=== PATIENT | male | born 1950 | race Caucasian/White ===

== ENCOUNTER 2017-08-16 07:37 | Outpatient (CLI) | payer MEDICARE, BC ==
[2017-08-16] MEDS ORDERED: Gadobenate Dimeglumine 529 MG/1 ML (20ML VIAL) ONE (09:00)
--- NOTE | 2017-08-16 13:02 | MRI ---
PRE AND POSTCONTRAST ENHANCED MRI IMAGES BRAIN: HISTORY: Malignant neoplasm of skin, melanoma; C43.9, C79.9. FINDINGS: Pre- and postcontrast-enhanced MRI images of brain obtained. Comparison is made to previous exam fro m 08/15/16. Pre- and postcontrast-enhanced MRI images of the brain demonstrate an area of T2 signal abnormality i n the right posterior frontal lobe. This is unchanged since the previous comparison exam. No abnorm al areas of enhancement are seen in this region or in the rest of the brain. No other T2 signal abno rmality is seen. IMPRESSION: Stable MRI appearance of the brain. No definite evidence of tumor recurrence or masses or lesions se en. A small area of T2 signal abnormality, which is stable, is again seen. No evidence of acute int racranial metastatic lesion seen. 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 POS: [facility]
--- NOTE | 2017-08-16 14:18 | CT ---
CHEST AND ABDOMEN AND PELVIC CT SCAN WITH IV CONTRAST: HISTORY: A 67-year-old male with a history of metastatic melanoma. The patient also has a history of a prior brain Schwannoma. COMPARISON: 08/15/16. FINDINGS: Small stable right minor fissure internal pulmonary lymph node, a normal finding. 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 No mediastinal mass or adenopathy. No pleural effusion or pericard ial effusion. Mild stable linear scarring in the right base. The liver, gallbladder, pancreas, spleen, adrenal glands, and kidneys are unremarkable. No renal hazel culi or acute obstruction. No evidence for bowel obstruction, abscess, adenopathy, or abnormal fl uid collection within the abdomen and pelvis. IMPRESSION: Unremarkable and stable chest, abdomen, and pelvic CT scan. No evidence of metastasis. Stable from 08/15/16. POS: [facility]
== END 2017-08-16 07:38 | disposition home or self-care (01) ==
LOC: SCSCT 07:37
PROVIDERS: ATTEND Internal Medicine Hematology & Oncology
DX: C79.31 Secondary malignant neoplasm of brain (principal); C43.9 Malignant melanoma of skin, unspecified
CPT/HCPCS: 70553; 71260; 74177; A9579

== ENCOUNTER 2017-10-24 13:53 | Emergency (ER) | payer MEDICARE, BC ==
--- NOTE | 2017-10-24 15:14 | RAD ---
AP PELVIS: History: Right hip pain, right thigh pain. FINDINGS/IMPRESSION: No fracture, dislocation, or bony destruction is identified. POS: [facility]
--- NOTE | 2017-10-24 15:50 | ULT ---
VENOUS DOPPLER ULTRASOUND OF THE RIGHT LOWER EXTREMITY: Date: 10/24/17 HISTORY: Right lower extremity pain. Right thigh and right hip pain. TECHNIQUE: Swift scale ultrasound with color flow and spectral Doppler imaging of the deep venous system of the r ight lower extremity is performed. FINDINGS: There is good flow, compression, and augmentation noted in the right common femoral, femoral, deep fe moral, popliteal, posterior tibial, and greater saphenous veins. IMPRESSION: No evidence of deep venous thrombosis in the right lower extremity. POS: [facility]
== END 2017-10-24 16:10 | disposition home or self-care (01) ==
LOC: SCSER 13:53
DX: S76.911A Strain of unspecified muscles, fascia and tendons at thigh level, right thigh, initial encounter (principal); I10 Essential (primary) hypertension; F43.10 Post-traumatic stress disorder, unspecified; Z87.891 Personal history of nicotine dependence; X50.9XXA Other and unspecified overexertion or strenuous movements or postures, initial encounter
CPT/HCPCS: 72170

== ENCOUNTER 2019-02-06 08:15 | Outpatient (CLI) | payer MEDICARE, BC ==
[2019-02-06] MEDS ORDERED: Iopamidol 370 76% 100 ML VIAL ONE (09:00)
--- NOTE | 2019-02-06 09:01 | CT ---
CT OF THE CHEST, ABDOMEN AND PELVIS WITH IV CONTRAST INDICATION: History of melanoma COMPARISON: CT of the chest, abdomen and pelvis with contrast dated August 16, 2017 FINDINGS: CHEST: Lungs:There is stable paraseptal emphysema involving the upper lobes. No suspicious pulmonary nodule or pleural effusion is demonstrated. Heart and great vessels:There are mild vascular calcifications involving the coronary arteries and th oracic aorta. No pathologically enlarged lymph nodes are evident. Pleural space: No pneumothorax or effusion. Additional findings: ABDOMEN: Liver:Normal appearing. Spleen:Normal appearing. Pancreas:Normal appearing. Adrenal Glands:Normal appearing. Kidneys:Normal appearing. Aorta:There are mild to moderate vascular calcifications involving the abdominal aorta. Additional findings: No free fluid or free air. Pelvis: Bowel:There is a mild amount of retained stool within the colon. The appendix is not definitely demon strated. The small bowel is of normal caliber. Bladder:Normal appearing. Reproductive structures:The prostate measures 5.6 cm Rectum and perirectal soft tissues:Normal appearing. Additional findings: No free fluid or free air. Osseous structures: No acute osseous abnormality. There is scattered degenerative and osteoarthritic changes. IMPRESSION: 1. No CT evidence of metastatic disease involving the chest, abdomen and pelvis.
== END 2019-02-06 08:16 | disposition home or self-care (01) ==
LOC: SCSCT 08:15
PROVIDERS: ATTEND Internal Medicine Hematology & Oncology
DX: C43.4 Malignant melanoma of scalp and neck (principal)
CPT/HCPCS: 71260; 74177; Q9967

== ENCOUNTER 2019-02-07 12:26 | Outpatient (CLI) | payer MEDICARE, BC ==
[~2019-02-07 12:26] MED LIST: Gadobenate Dimeglumine 529 MG/1 ML (20ML VIAL) ONE
--- NOTE | 2019-02-07 14:50 | MRI ---
BRAIN MRI: 02/07/19 CLINICAL HISTORY: Malignant melanoma scalp and neck. FINDINGS: Reference is made to 08/16/17 MRI brain exam. Stable FLAIR and T2 hyperintense signal abnormality of the right parietal lobe involving cortex and s ubcortical white matter. There is no pathologic intra-axial enhancement. Areas of overlying suscepti bility from calvarial and scalp related artifact from prior surgery are present. There is mild globa l atrophy with compensatory dilatation of ventricular system. No acute territorial infarction. Incid ental note of a stable left vestibular Schwannoma. IMPRESSION: Stable brain MRI. No interval acute intracranial abnormalities demonstrated. POS: [facility]
== END 2019-02-07 12:27 | disposition home or self-care (01) ==
LOC: SCSMRI 12:26
PROVIDERS: ATTEND Internal Medicine Hematology & Oncology
DX: C43.4 Malignant melanoma of scalp and neck (principal)
CPT/HCPCS: 70553

== ENCOUNTER 2019-04-18 09:01 | Emergency (ER) | payer MEDICARE, BC | END 2019-04-18 09:50 | disposition home or self-care (01) | LOC: SCSER 09:01 | DX: S39.012A Strain of muscle, fascia and tendon of lower back, initial encounter (principal); I10 Essential (primary) hypertension; F43.10 Post-traumatic stress disorder, unspecified; Z87.891 Personal history of nicotine dependence; Z79.899 Other long term (current) drug therapy; X50.0XXA Overexertion from strenuous movement or load, initial encounter | CPT/HCPCS: 99283 ==

== ENCOUNTER 2019-11-19 08:22 | Outpatient (CLI) | payer MEDICARE, BC ==
--- NOTE | 2019-11-19 09:48 | CT ---
CT CHEST WITH IV CONTRAST CT ABDOMEN WITH IV CONTRAST CT PELVIS WITH IV CONTRAST: HISTORY: Malignant melanoma of the scalp and neck. COMPARISON: 02/06/2019. FINDINGS: No mediastinal, hilar, or axillary mass or lymphadenopathy is seen. No pleural or pericardial effusi ons are identified. The 5 mm nodule in the right upper lobe is stable. No new lung nodules are seen . The liver, spleen, pancreas, adrenal glands, and kidneys are normal. No calcified gallstones are see n. No free air, free fluid, or lymphadenopathy is noted in the abdomen or pelvis. The prostate is enlar ged. There are vascular calcifications without evidence of aneurysmal dilatation of the thoracoabdominal a arlyn. There are degenerative changes in the thoracolumbar spine. N osteolytic or osteoblastic lesio ns are seen. IMPRESSION: Stable exam. No evidence of metastatic disease in the chest, abdomen, or pelvis. POS: [facility]
== END 2019-11-19 08:23 | disposition home or self-care (01) ==
LOC: SCSCT 08:22
PROVIDERS: ATTEND Internal Medicine Hematology & Oncology
DX: C43.4 Malignant melanoma of scalp and neck (principal)
CPT/HCPCS: 71260; 74177; 82565

== ENCOUNTER 2019-11-20 09:01 | Outpatient (CLI) | payer MEDICARE, BC ==
--- NOTE | 2019-11-20 11:01 | MRI ---
MRI of thebrain: 11/20/2019 COMPARISON:02/07/2019 HISTORY:Malignant melanoma of scalp/neck, evaluate for intracranial metastatic disease TECHNIQUE: Multiplanar multisequence MR imaging of thebrain with and without contrast Findings:Evidence of prior right-sided craniotomy again noted. Gradient echo imaging demonstrates min imal blooming artifact deep to the craniotomy site on the basis of prior surgery, unchanged when compared to prior imaging. The gradient echo imaging demonstrates no evidence for acute intracranial hemorrhage. The diffusion weighted imaging demonstrates no evidence for acute infarction. Arterial flow voids at the axial level of the skull base appear grossly unremarkable on the T2-weight ed imaging. No midline shift or mass effect. No ventricular enlargement. Stable moderate diffuse cerebral volume loss. There is a small focal area of encephalomalacia deep to the craniotomy site on the right, unchanged w hen compared to the prior examination. No abnormal enhancement is noted in this region to suggest the presence of residual or recurrent disease. There is an enhancing mass centered at the cerebellopontine angle on the left extending into the left internal auditory canal measuring 1.3 cm in transverse dimension, consistent with a vestibular schwannoma, not significantly changed when compared to prior imaging. IMPRESSION:Postoperative changes on the right with subjacent encephalomalacia. No enhancement in this region to suggest the presence of recurrent/residual metastatic disease. Stable enhancing lesion on the left, evidence of stable vestibular schwannoma.
== END 2019-11-20 09:02 | disposition home or self-care (01) ==
LOC: SCSMRI 09:01
PROVIDERS: ATTEND Internal Medicine Hematology & Oncology
DX: C43.4 Malignant melanoma of scalp and neck (principal); C79.31 Secondary malignant neoplasm of brain; G93.89 Other specified disorders of brain; D36.10 Benign neoplasm of peripheral nerves and autonomic nervous system, unspecified; Z98.890 Other specified postprocedural states
CPT/HCPCS: 70553

== ENCOUNTER 2022-01-18 16:09 | Outpatient (CLI) | payer MEDICARE, BC | END 2022-01-18 16:10 | disposition home or self-care (01) | LOC: SCSRAD 16:09 | PROVIDERS: ATTEND Family Medicine | DX: R10.31 Right lower quadrant pain (principal) | CPT/HCPCS: 72170 ==

== ENCOUNTER 2023-03-02 10:02 | Outpatient (CLI) | payer MEDICARE, BC | END 2023-03-02 10:03 | disposition home or self-care (01) | LOC: SCSMRI 10:02 | PROVIDERS: ATTEND Student in an Organized Health Care Education/Training Program | DX: D33.3 Benign neoplasm of cranial nerves (principal); Z85.89 Personal history of malignant neoplasm of other organs and systems | CPT/HCPCS: 70553; 82565 ==

== ENCOUNTER 2023-12-06 14:25 | Outpatient (CLI) | payer MEDICARE, BC | END 2023-12-06 14:26 | disposition home or self-care (01) | LOC: SCSRAD 14:25 | PROVIDERS: ATTEND Nurse Practitioner Family | DX: M25.562 Pain in left knee (principal) ==